=== PATIENT | male | born 1955 | race Two or more races ===

== ENCOUNTER 2024-07-11 08:49 | Outpatient (CLI) | payer OTHER ==
[~2024-07-11 08:49] MED LIST: ALDACTONE25 MG; ASA81 MG; COREG CR10 MG; FUROSEMIDE40 MG; LIPITOR20 MG; VASOTEC5 MG
== END 2024-07-11 09:09 | disposition home or self-care (01) ==
LOC: TOM 08:49
PROVIDERS: ATTEND Family Medicine
DX: Z12.11 Encounter for screening for malignant neoplasm of colon (principal)